=== PATIENT | male | born 1955 | race Caucasian/White ===

== ENCOUNTER 2021-02-21 10:39 | Emergency (ER) | payer OTHER, SELFPAY ==
[2021-02-21 10:40] VITALS: BP 129/89; PULSE 86; RESP 16; TEMP 37; O2SAT 98; BMI 24.9
[2021-02-21 10:58] VITALS: BP 129/89; PULSE 86; RESP 16; TEMP 37; O2SAT 98
--- NOTE | 2021-02-21 11:04 | HMH.EDUTC ---
[facility] [place] Clinical Impression: Otitis media Qualifiers: Otitis media type: unspecified Laterality: right Qualified Code(s): H66.91 - Otitis media, unspecified, right ear Disposition: Home, Self-Care Condition on Discharge: Good Instructions: Middle Ear Infection, Amoxicillin and Clavulanic Acid Additional Instructions: *Monitor Temp, Over the counter Motrin or Tylenol as directed/as needed Tylenol every 4 hours and Motrin every 6 hours (as long as your family doctor has told you that you can take it) for fever or pain. and straight to ER if unable to lower temp less than 101.0 after medication given *Warm salt water gargles may help to soothe the throat *Throat Lozenges *Warm fluids like tea with honey may help to soothe the throat *Sleep elevated Flonase 2 sprays in each nostril daily but be aware that it may take 2-3 days before you notice improvement Follow up IMMEDIATELY for new or worsening symptoms or no Noticeable improvement over the next 48-72 hours. 911 for difficulty breathing or swallowing Prescriptions: Amoxicillin/Potassium Clav [Augmentin 875-125 Tablet] 1 tab PO Q12H 10 Days #20 tab Transmission Status: Pending to [email or web address] Fluticasone Propionate [Flonase 50mcg nasal spray 16gm] 1 spr NS DAILY #1 each Transmission Status: Pending to [email or web address] Referrals: Provider,Referral, [Primary Care Provider] - As needed Time of Disposition: 11:06 Medical Decision Making - Dharmesh Inquiry Pt receiving controlled substance: No Dharmesh was queried for this patient: No Vital Signs: 02/21/21 10:40 02/21/21 10:58 Temperature 98.6 F 98.6 F Temperature Source Oral Pulse Rate 86 Pulse Rate [Left Brachial] 86 Respiratory Rate 16 16 Blood Pressure 129/89 Blood Pressure [Left Arm] 129/89 Blood Pressure Mean [Left Arm] 102 Blood Pressure Source [Left Arm] Automatic Cuff Blood Pressure Position [Left Arm] Sitting 02 Sat by Pulse Oximetry 98 Oxygen Delivery Method Room Air [facility] [place] [facility] [place] - General Stated complaint: right ear pain Time Seen by Provider: 02/21/21 11:04 Mode of Arrival: Ambulatory Source of Information: Patient Limitations: No Limitations Description of Symptoms (Recalled from Triage Doc. by RN): PATIENT C/O RIGHT EAR PAIN HEENT Symptoms (Recalled from RN notes): Yes Resp Symptoms (Recalled from RN notes): No Skin Symptoms (Recalled from RN notes): No MS Symptoms (Recalled from RN notes): No Functional Status (Recalled from RN notes): WNL - History of Present Illness Provider Complaint: Patient state that he has been having pain in his right ear States that he wears a hearing aid and he noticed his ear felt full and was having pain in it States that today he was hurting still so he came in to get checked - Related Data Previous Rx's Medication Instructions Recorded Amoxicillin/Potassium Clav 1 tab PO Q12H 10 Days #20 tab 02/21/21 [Augmentin 875-125 Tablet] Fluticasone Propionate [Flonase 1 spr NS DAILY #1 each 02/21/21 50mcg nasal spray 16gm] Allergies Allergy/AdvReac Type Severity Reaction Status Date / Time No Known Allergies Allergy Verified 02/21/21 10:52 - Worker's Comp Is this a Worker's Comp case?: No [facility] History - Hepatitis A Screen Drug use history?: No High risk sexual behaviors?: No History of sexually transmitted infection?: No Currently employed?: No Childcare worker?: No Do you have indoor plumbing?: Yes Do you have electricity?: Yes Attestation statement:: This patient has been screened for Hepatitis A risk factors. I have reviewed the patient's past medical history: Yes - Social History Alcohol Intake: never Occupational Status: other ROS Obtained: Yes All systems reviewed & no additional complaints, Yes Systems reviewed as appropriate & no additional complaints - ENT Ears, Nose, Mouth, and Throat: Reports system reviewed and no additional complaints, except as docu, Reports otalgia - Cardiovasc
== END 2021-02-21 11:09 | disposition home or self-care (01) ==
PROVIDERS: Emergency Provider Nurse Practitioner
DX: H66.91 Otitis media, unspecified, right ear (principal)
CPT/HCPCS: 99202; G0463

== ENCOUNTER 2021-04-19 13:12 | Emergency (ER) | payer MEDICARE, OTHER, SELFPAY ==
[2021-04-19 13:12] VITALS: BP 136/91; PULSE 68; RESP 18; TEMP 37.1; O2SAT 98; BMI 28.7
--- NOTE | 2021-04-19 15:03 | XR_ITS ---
FINAL REPORT CLINICAL HISTORY: Lac to rt thumb , SAW INJURY FINDINGS: RIGHT HAND Three views demonstrate no acute fracture or dislocation. The joint spaces appear normal. There is soft tissue swelling of the distal thumb with soft tissue irregularity. No foreign body is identified. IMPRESSION: Soft tissue swelling of the thumb without foreign body. Reviewed, Interpreted and Dictated by Michael Velazquez III, MD Transcribed by Mindy Pedraza Authenticated by Michael Velazquez III, MD on 04/19/2021 04:17:36 PM [facility]
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
[2021-04-19 20:28] VITALS: BP 124/78; PULSE 84; RESP 12; TEMP 36.7; O2SAT 97
== END 2021-04-19 20:32 | disposition home or self-care (01) ==
PROVIDERS: Emergency Provider Student in an Organized Health Care Education/Training Program
DX: S61.011A Laceration without foreign body of right thumb without damage to nail, initial encounter (principal); W27.0XXA Contact with workbench tool, initial encounter; Y92.019 Unspecified place in single-family (private) house as the place of occurrence of the external cause
CPT/HCPCS: 12001; 73130; 99282; 99283

== ENCOUNTER 2022-08-14 16:37 | Emergency (ER) | payer SELFPAY ==
[2022-08-14 16:38] VITALS: BP 127/82; PULSE 78; RESP 16; TEMP 36.7; O2SAT 98; BMI 28.7
--- NOTE | 2022-08-14 17:00 | EXP.UTC ---
Discharge Plan Disposition Patient Disposition: Home, Self-Care Condition: Good Prescriptions Prescriptions: No Action fluticasone propionate 120 SPR/BOT bottle 1 spr NS DAILY Qty: 1 0RF Rx Instructions: one spray in each nostril daily amoxicillin-pot clavulanate 1 EACH tablet 1 tab PO Q12H 10 Days Qty: 20 0RF cephalexin 500 MG tablet 500 mg PO Q6H 5 Days Qty: 20 0RF Referrals Follow up/Referrals: Provider,Referral, MD [Primary Care Provider] - See instructions Activity Restrictions/Add. Instructions Additional Instructions/Restrictions: Try to identify and avoid contact with the offending substance (poison debbie, etc). Finish the oral steroids that your are already on. Follow up with your regular doctor. GO TO THE ER FOR ANY WORSENING SYMPTOMS OR CONCERNS Clinical Impressions Clinical Impression: Contact dermatitis of face Instructions Patient Instructions: Contact Dermatitis, DI for Contact Dermatitis Discharge ED Provider: Alberto Mar [facility] General Stated complaint: poss posion debbie Mode of Arrival: Ambulatory Source of Information: Patient Limitations: No Limitations Time Seen by Provider: 08/14/22 17:00 Description of Symptoms (Recalled from Triage Doc. by RN): Patient reports a rash to the left side of face for 1.5 weeks now. States he thinks it is poison debbie but it is painful. HEENT Symptoms (Recalled from RN notes): No Resp Symptoms (Recalled from RN notes): No Skin Symptoms (Recalled from RN notes): Yes MS Symptoms (Recalled from RN notes): No Functional Status (Recalled from RN notes): wnl History of Present Illness Provider Complaint: He states that for the past 10 days he has had an itchy rash on the left side of his forehead. He states that he was exposed to poison debbie before his symptoms began. Related Data Previous Rx's Medication Instructions Recorded amoxicillin 875 mg-potassium 1 tab PO Q12H 10 days #20 tabs 02/21/21 clavulanate 125 mg tablet fluticasone propionate 50 1 spr NS DAILY #1 ea 02/21/21 mcg/actuation nasal spray,suspension cephalexin 500 mg tablet 500 mg PO Q6H 5 days #20 tabs 04/19/21 Allergies Allergy/AdvReac Type Severity Reaction Status Date / Time No Known Allergies Allergy Verified 02/21/21 10:52 Worker's Comp Is this a Worker's Comp case?: No [facility] Disclaimer: The information contained in this section may have been updated after the patient was seen, as this information can be updated by other users. Social History Smoking Status: Never smoker alcohol intake: never current occupational status: other Travel in the last 8 weeks: None ROS Obtained: Yes All systems reviewed & no additional complaints except as documented Constitutional Constitutional: Denies chills and Denies fever(s) Eyes Eyes: Denies eye discharge ENT Ears, Nose, Mouth, and Throat: Denies dizziness, Denies otalgia and Denies sore throat Cardiovascular Cardiovascular: Denies chest pain Respiratory Respiratory: Denies shortness of breath, Denies chest congestion, Denies cough, Denies stridor and Denies wheezing Gastrointestinal Gastrointestingal: Denies nausea or vomiting Musculoskeletal Musculoskeletal: Reports system reviewed and no additional complaints, except as documented and Denies arthralgias Integumentary/Breasts Skin/Breast: Reports as per HPI Neurologic Neurologic: Denies dizziness and Denies paresthesias Allergic/Immunologic Allergic/Immunologic: Denies wheezing Physical Exam General General appearance: alert and in no apparent distress Head Head exam: atraumatic, normocephalic and normal inspection Eye Eye exam: Present normal appearance, PERRL and EOMI ENT ENT exam: Present normal exam, normal oropharynx, mucous membranes moist, TM's normal bilaterally and normal external ear exam Neck Neck exam: Present normal inspection, full ROM and trachea midline; Absent meningismus or lymphadenopathy Chest Chest inspe
[2022-08-14 17:18] VITALS: BP 127/82; PULSE 78; RESP 16; TEMP 36.7; O2SAT 98
== END 2022-08-14 17:19 | disposition home or self-care (01) ==
PROVIDERS: Emergency Provider Nurse Practitioner Family
DX: L23.7 Allergic contact dermatitis due to plants, except food (principal); W60.XXXA Contact with nonvenomous plant thorns and spines and sharp leaves, initial encounter
CPT/HCPCS: 96372; 99212; 99214; G0463

== ENCOUNTER 2023-07-27 14:11 | Emergency (ER) | payer OTHER, SELFPAY ==
[2023-07-27 14:11] VITALS: BP 109/71; PULSE 80; RESP 13; TEMP 36.6; O2SAT 94; BMI 26.4
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
[2023-07-27 14:48] LABS: Basophils % 0.7 % (0.1-2.0); Eosinophils # 0.1 K/mm3 (0.0-0.4); Eosinophils % 2.3 % (0.1-12.0); Hematocrit 38.6 % (42.0-52.0); Hemoglobin 12.7 g/dL (14.1-18.0); Lymphocytes # 1.3 K/mm3 (0.7-4.5); Mean Corpuscular HGB Conc 32.9 g/dL (31.8-35.4); Mean Corpuscular Hemoglobin 31.3 pg (27.0-31.2); Mean Corpuscular Volume 95.3 fl (80-94); Mean Platelet Volume 8.2 fl (7.4-10.4); Monocytes # 0.4 K/mm3 (0.1-1.0); Monocytes % 6.1 % (1.7-9.3); Neutrophils # 4.2 K/mm3 (1.8-7.8); Platelet Count 210 K/mm3 (142-424); Red Blood Count 4.05 M/mm3 (4.60-6.20); Red Cell Distribution Width 13.7 % (11.5-17.5); White Blood Count 6.1 K/mm3 (4.8-10.8)
[2023-07-27 14:56] LABS: Chloride 108 mmol/L (98-107); Potassium 4.2 mmoL/L (3.5-5.1); Sodium 140 mmol/L (136-145)
[2023-07-27] MEDS: 0.9 % SODIUM CHLORIDE 50 ML VIAL IV (14:56)
[2023-07-27 14:58] LABS: Alanine Aminotransferase 18 U/L (12-78); Aspartate Amino Transferase 38 U/L (17-59); Blood Urea Nitrogen 33 mg/dl (9-20); Creatinine Clearance Estimated 60 mL/min (50-200); Estimated Glomerular Filt Rate 51 ml/min (>60); GFR (African American) 61 ML/MIN (>60)
[2023-07-27 14:59] LABS: Albumin Level 4.2 g/dl (3.5-5.0); Albumin/Globulin Ratio 1.4 (1.1-1.8); Alkaline Phosphatase 41 U/L (38-126); Anion Gap 11.2 mEq/L (5-15); Bilirubin,Total 0.6 mg/dl (0.2-1.3); Calcium 9.2 mg/dl (8.4-10.2); Carbon Dioxide 25 mmol/L (22.0-30.0); Globulin 2.9 g/dL (1.3-3.2); Glucose 110 mg/dl (74-100); Total Protein,Serum 7.1 g/dl (6.3-8.2)
[2023-07-27] MEDS: SODIUM CHLORIDE 0.9% 10ML SYR (RAD ONLY) 10 ML IV (14:59)
[2023-07-27] MEDS: IOPAMIDOL-370 (76%);100ML BOTTLE 100 ML IV (14:59)
[2023-07-27 15:01] VITALS: BP 126/65; PULSE 75; O2SAT 97
[2023-07-27] MEDS: IOPAMIDOL-370 (76%);100ML BOTTLE 20 ML IV (15:06)
[2023-07-27] MEDS: CEFAZOLIN SODIUM 1 GM in 0.9 % SODIUM CHLORIDE 50 ML IV (15:08)
[2023-07-27] MEDS: OXYCODONE 5MG IMMEDIATE RELEASE TABLET 5 MG PO (15:08)
[2023-07-27] MEDS: TET/DIPHTH/PERT-ADULT 0.5ML SYRINGE 0.5 ML IM (15:10)
[2023-07-27 15:49] VITALS: BP 126/65; PULSE 67; RESP 16; TEMP 36.6; O2SAT 98
== END 2023-07-27 15:51 | disposition short-term general hospital (02) ==
PROVIDERS: Emergency Provider Emergency Medicine
DX: S81.802A Unspecified open wound, left lower leg, initial encounter (principal); W34.00XA Accidental discharge from unspecified firearms or gun, initial encounter; Z23 Encounter for immunization
CPT/HCPCS: 73590; 73706; 80053; 85025; 90471; 90715; 96365; 99285; Q9967

== ENCOUNTER 2024-04-13 10:15 | Emergency (ER) | payer OTHER, SELFPAY ==
[2024-04-13 10:16] VITALS: BP 154/89; PULSE 100; RESP 21; TEMP 36.5; O2SAT 99; BMI 27.2
--- NOTE | 2024-04-13 10:34 | PC.NURSE ---
DR SMITH AT BEDSIDE
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
[2024-04-13] MEDS: HYDROCODONE/APAP 5/325 MG TABLET 2 TAB PO (10:48)
[2024-04-13 10:55] VITALS: BP 136/96; PULSE 90; RESP 19; TEMP 36.5; O2SAT 99
== END 2024-04-13 10:56 | disposition home or self-care (01) ==
PROVIDERS: Emergency Provider Student in an Organized Health Care Education/Training Program
DX: T23.271A Burn of second degree of right wrist, initial encounter (principal); T20.25XA Burn of second degree of scalp [any part], initial encounter; M79.641 Pain in right hand; R20.8 Other disturbances of skin sensation; X08.8XXA Exposure to other specified smoke, fire and flames, initial encounter; Y93.89 Activity, other specified; Y92.71 Barn as the place of occurrence of the external cause
CPT/HCPCS: 99283